=== PATIENT | male | born 1945 | race Caucasian/White ===

== ENCOUNTER → 2016-08-03 | Outpatient (CLI) | payer MEDICARE, BC ==
[2016-08-03 10:31] LABS: Prostate Specific Antigen 1.09 ng/mL (0.00-4.00)
== END | disposition home or self-care (01) ==
LOC: LABWHC1 08:27
PROVIDERS: ATTEND Internal Medicine Endocrinology, Diabetes & Metabolism
DX: E29.1 Testicular hypofunction (principal)
CPT/HCPCS: 36415; 84153; 84403

== ENCOUNTER 2020-08-02 07:48 | Day surgery (SDC) | payer MEDICARE, BC ==
[2020-07-21 14:38] VITALS: BMI 30.4
[~2020-08-02 07:48] MED LIST: ALPRAZolam 0.25 MG TAB PO PRN; ALPRAZolam 0.5 MG TAB PO PRN; ASPIRIN 325 MG TAB PO ONE; ATORVASTATIN 80 MG TAB PO ONE; NITROGLYCERIN SL TABS 0.4 MG TAB SUBLINGUAL PRN; SODIUM CHLORIDE 0.9% 1,000 ML in EMPTY BAG 1 BAG IV ONE
[2020-08-02 08:17] LABS: Glucose,Whole Blood 114 mg/dL (75-99)
[2020-08-02 08:20] VITALS: TEMP 97.9
[2020-08-02 08:25] LABS: Basophils % (A) 1 %; Eosinophils # (A) 0.1 k/uL (0-0.7); Eosinophils % (A) 2 %; HCT 44.3 % (39.0-53.0); HGB 14.6 gm/dL (13.0-17.5); Hypochromasia Slight; Lymphocytes # (A) 1.6 k/uL (1.0-4.8); Lymphocytes % (A) 27 %; MCH 33.3 pg (25.0-35.0); MCHC 32.9 g/dL (31.0-37.0); MCV 101.1 fL (80.0-100.0); Macrocytosis Slight; Monocytes # (A) 0.5 k/uL (0-1.0); Monocytes % (A) 8 %; Neutrophils # (A) 3.6 k/uL (1.3-7.7); Neutrophils % (A) 60 %; Platelet Count 132 k/uL (150-450); RBC 4.38 m/uL (4.30-5.90); RDW 14.6 % (11.5-15.5)
[2020-08-02] MEDS ORDERED: fentaNYL (PF) 50 MCG/ML 2 ML AMP ONE ×2 (08:38→11:28)
[2020-08-02] MEDS ORDERED: LIDOCAINE 1% INJ 10MG/ML (20 ML MDV) ONE ×2 (08:38→11:12)
[2020-08-02] MEDS ORDERED: fentaNYL (PF) 50 MCG/ML 2 ML AMP IV ONE ×2 (08:43→11:30)
[2020-08-02] MEDS ORDERED: MIDAZOLAM 2 MG/2 ML VIAL IV ONE (08:43)
[2020-08-02] MEDS ORDERED: LIDOCAINE 1% INJ 10MG/ML (20 ML MDV) SQ ONE (08:45)
[2020-08-02] MEDS ORDERED: IOPAMIDOL-370 125ML BTL INJ ONE (09:20)
[2020-08-02] MEDS ORDERED: IOPAMIDOL-370 50ML BTL INJ ONE ×2 (09:20→11:35)
[2020-08-02 11:09] VITALS: RESP 18
[2020-08-02] MEDS ORDERED: IV FLUID CONTINUATION 1,000 ML IV ONE (11:10)
--- NOTE | 2020-08-02 11:39 | CC ---
CARDIAC CATHETERIZATION REPORT INDICATION: Ischemic cardiomyopathy in a patient with known CAD, status post bypass surgery. Mr. Whelan is a 74-year-old gentleman with history of coronary artery disease status post CABG in 2002 with WALLACE to LAD, radial artery graft to PDA and venous graft to OM and ramus intermedius. The patient has been followed by me regularly and on the most recent stress test that was done nearly 4 years after his previous stress test, his LV systolic function has diminished and there is a new fixed perfusion defect involving the anterolateral wall. Due to the worsening LV function and new perfusion defects in a diabetic, I advised the patient to undergo cardiac catheterization. He had been explained of risks, benefits and alternatives, understood and accepted. PROCEDURE NOTE: After obtaining informed consent, left heart catheterization, coronary angiogram, selective injection of the bypass grafts, and aortogram was performed via the right femoral artery using standard Ricardo catheters. The patient tolerated the procedure well without any obvious immediate complications. Patient received moderate conscious sedation. Total sedation time was 40 minutes. FINDINGS: 1. HEMODYNAMICS: Left ventricular end-diastolic pressure is 20 to 24 mm. There is no significant gradient across the aortic valve. 2. LEFT VENTRICULOGRAM: Left ventriculogram is not performed. 3. AORTOGRAM: Aortogram was performed to locate the bypass grafts. There is no evidence of aortic aneurysm, dissection are significant aortic regurgitation. 4. ANGIOGRAPHIC DATA: SQUAXIN CORONARY ARTERIES: Left main coronary artery appears to be a normal-sized vessel. Divides into left anterior descending coronary artery and circumflex coronary artery. LAD appears totally occluded in its proximal portion. The circumflex coronary artery gives off a large caliber OM branch proximally. Circumflex coronary artery has a 90% stenosis in the ostial portion and there is also a 70% to 80% distal lesion. OM branch is a small caliber vessel, has multiple areas of stenotic lesions noted. Right coronary artery is totally occluded in the ostial portion. SELECTIVE INJECTION OF THE BYPASS GRAFTS: 1. WALLACE to LAD appears patent. Proximal and distal anastomotic sites are free of disease and the rampart LAD is free of significant disease. 2. Radial artery graft to the right coronary artery appears patent. The distal right coronary artery is free of disease and the anastomotic sites appear normal. 3. Venous graft to the circumflex coronary artery appears occluded. I could not document the second venous graft. CONCLUSION: 1. [place]da[place] 3-vessel coronary artery disease with patent WALLACE to LAD and patent radial artery graft to the right coronary artery. 2. Occluded venous graft to the OM branch and ramus intermedius. PLAN: I reviewed angiographic data with the welding machine setter. We will perform revascularization of the circumflex coronary artery. MELL / JESSICAN: [id number] /
[2020-08-02] MEDS ORDERED: RX INFO: IV CONTRAST WAS GIVEN 1 EACH MISC MISCELLANE PRN (11:46)
[2020-08-02] MEDS ORDERED: SODIUM CHLORIDE 0.9% 1,000 ML IV SCH (12:00)
--- NOTE | 2020-08-02 12:45 | PN ---
PROGRESS NOTE Mr. Whelan is a 74-year-old male with known history of coronary artery disease status post coronary artery bypass grafting, history of diabetes mellitus, who has been followed by Dr. Escudero and had a change in his stress test, underwent cardiac catheterization, was found to have patent WALLACE to LAD, patent saphenous vein graft to the right coronary artery with totally occluded graft to the left circumflex with critical stenosis involving the left circumflex in the first obtuse marginal branch. Recommendation was made regarding angioplasty and stenting. Because of the amount of dye that the patient received during the cardiac catheterization and the complexity of the procedure, the decision was made to postpone the procedure at this time and bring back the patient at a later time to undergo elective angioplasty and stenting of the left circumflex. His sheath was removed and hemostasis was obtained by placement of an Angio-Seal. I discussed those findings in detail with the patient as well as with Dr. Escudero. MMESTHELA / JESSICAN: [id number] /
[2020-08-02 15:44] VITALS: BP 147/81; PULSE 86
[2020-08-02] MEDS ORDERED: REG INSULIN SQ SCH (17:30)
[2020-08-02] MEDS ORDERED: INSULIN NPH SQ SCH (17:30)
[2020-08-02] MEDS ORDERED: ATORVASTATIN 10 MG TAB PO SCH (21:00)
[2020-08-02] MEDS ORDERED: IPRATROPIUM BROMIDE 0.06% NASAL SPRAY (15 ML) EA NOSTRIL SCH (21:00)
[2020-08-02] MEDS ORDERED: PIOGLITAZONE 30 MG TAB PO SCH (21:00)
[2020-08-02] MEDS ORDERED: POTASSIUM CHLORIDE ER 20 MEQ TAB.ER PO SCH (21:00)
[2020-08-02] MEDS ORDERED: FUROSEMIDE 40 MG TAB PO SCH (21:00)
[2020-08-02] MEDS ORDERED: METOPROLOL TARTRATE 50 MG TAB PO SCH (21:00)
[2020-08-03] MEDS ORDERED: INSULIN NPH SQ SCH (07:30)
[2020-08-03] MEDS ORDERED: REG INSULIN SQ SCH (07:30)
[2020-08-03] MEDS ORDERED: lisinopriL 20 MG TAB PO SCH (09:00)
[2020-08-03] MEDS ORDERED: ASPIRIN 81 MG PO SCH (09:00)
== END 2020-08-02 16:31 | disposition home or self-care (01) ==
LOC: CATHCVL 07:48
PROVIDERS: ATTEND Internal Medicine Cardiovascular Disease
DX: T82.898A Other specified complication of vascular prosthetic devices, implants and grafts, initial encounter (principal); I25.10 Atherosclerotic heart disease of native coronary artery without angina pectoris; R94.39 Abnormal result of other cardiovascular function study; I25.5 Ischemic cardiomyopathy; I10 Essential (primary) hypertension; E78.2 Mixed hyperlipidemia; E11.9 Type 2 diabetes mellitus without complications; R60.0 Localized edema; I25.2 Old myocardial infarction; Z95.1 Presence of aortocoronary bypass graft; Z79.82 Long term (current) use of aspirin; Z79.899 Other long term (current) drug therapy; Z79.84 Long term (current) use of oral hypoglycemic drugs; Z79.83 Long term (current) use of bisphosphonates
CPT/HCPCS: 93459; 93567; 85025; C1769 ×3; C1894; J2250; J2001; J3010; Q9967 ×2

== ENCOUNTER 2020-08-08 07:54 | Day surgery (SDC) | payer MEDICARE, BC ==
[2020-08-04 11:25] VITALS: BMI 28.4
[~2020-08-08 07:54] MED LIST changes: -ASPIRIN 325 MG TAB PO ONE; +ASPIRIN 325 MG TAB PO STA; -ATORVASTATIN 80 MG TAB PO ONE; +HEPARIN SODIUM,PORCINE 10,000 UNIT in SODIUM CHLORIDE 0.9% 1,000 ML IRRIGATION PRN; +HEPARIN SODIUM,PORCINE 2,500 UNIT in SODIUM CHLORIDE 0.9% 250 ML IRRIGATION PRN
[2020-08-08] MEDS ORDERED: METOPROLOL TARTRATE 50 MG TAB PO STA (08:26)
[2020-08-08] MEDS ORDERED: lisinopriL 20 MG TAB PO STA (08:26)
[2020-08-08 08:27] LABS: Glucose,Whole Blood 137 mg/dL (75-99)
[2020-08-08] MEDS ORDERED: LIDOCAINE 1% INJ 10MG/ML (20 ML MDV) ONE (09:55)
[2020-08-08] MEDS ORDERED: fentaNYL (PF) 50 MCG/ML 2 ML AMP ONE (10:21)
[2020-08-08] MEDS ORDERED: fentaNYL (PF) 50 MCG/ML 2 ML AMP IV ONE (10:36)
[2020-08-08] MEDS ORDERED: LIDOCAINE 1% INJ 10MG/ML (20 ML MDV) SQ ONE (10:40)
[2020-08-08] MEDS ORDERED: CLOPIDOGREL 75 MG TAB ONE (10:43)
[2020-08-08] MEDS ORDERED: HEPARIN SODIUM 1,000 UN/ML (10ML VL) ONE (10:43)
[2020-08-08] MEDS ORDERED: HEPARIN SODIUM 1,000 UN/ML (10ML VL) IV ONE (10:45)
[2020-08-08] MEDS ORDERED: CLOPIDOGREL 75 MG TAB PO ONE (10:47)
[2020-08-08] MEDS ORDERED: IOPAMIDOL-370 125ML BTL INJ ONE ×2 (11:03→11:26)
[2020-08-08 11:11] LABS: African American GFR (CKD) >90 (>60 ml/min/1.73 sqM); Anion Gap 9 mmol/L; Blood Urea Nitrogen 21 mg/dL (9-20); Calcium 9.6 mg/dL (8.4-10.2); Carbon Dioxide 28 mmol/L (22-30); Chloride 104 mmol/L (98-107); Glucose 149 mg/dL (74-99); Non-African American GFR(CKD) 87 (>60 ml/min/1.73 sqM); Sodium 141 mmol/L (137-145)
[2020-08-08 11:26] LABS: Potassium 4.8 mmol/L (3.5-5.1)
[2020-08-08 11:27] LABS: Basophils % (A) 1 %; Eosinophils # (A) 0.2 k/uL (0-0.7); Eosinophils % (A) 3 %; HCT 43.5 % (39.0-53.0); HGB 14.5 gm/dL (13.0-17.5); Lymphocytes # (A) 1.3 k/uL (1.0-4.8); Lymphocytes % (A) 25 %; MCH 33.3 pg (25.0-35.0); MCHC 33.2 g/dL (31.0-37.0); MCV 100.2 fL (80.0-100.0); Mean Platelet Volume 8.4; Monocytes # (A) 0.4 k/uL (0-1.0); Monocytes % (A) 8 %; Neutrophils # (A) 3.1 k/uL (1.3-7.7); Neutrophils % (A) 59 %; Platelet Count 138 k/uL (150-450); RBC 4.34 m/uL (4.30-5.90); RDW 13.4 % (11.5-15.5); WBC 5.2 k/uL (3.8-10.6)
[2020-08-08] MEDS ORDERED: RX INFO: IV CONTRAST WAS GIVEN 1 EACH MISC MISCELLANE PRN (11:37)
[2020-08-08] MEDS ORDERED: ATROPINE SULFATE 0.1 MG/ML 10ML SYRINGE IV PRN (11:37)
[2020-08-08] MEDS ORDERED: ZOLPIDEM 5 MG TAB PO PRN (11:37)
[2020-08-08] MEDS ORDERED: NITROGLYCERIN SL TABS 0.4 MG TAB SUBLINGUAL PRN (11:37)
[2020-08-08] MEDS ORDERED: MAG HYDROX/AL HYDROX/SIMETH 30 ML CUP PO PRN (11:37)
[2020-08-08] MEDS ORDERED: SODIUM CHLORIDE 0.9% 1,000 ML IV SCH (11:45)
--- NOTE | 2020-08-08 12:18 | PTCA ---
PERCUTANEOUSTRANS CORORONARY ANGIOGRAPHY Mr. Whelan is a 74-year-old male status post coronary artery bypass grafting 17 years ago, who recently had a drop in his ejection fraction. He was evaluated by Dr. Escudero and underwent cardiac catheterization and was found to have significant obstructive disease involving the left circumflex with occluded graft to the left circumflex. In view of that, recommendation was made regarding angioplasty and stenting. The procedure as well as the risks and the complications were discussed with the patient and he is in full understanding and agreement. PROCEDURE: Patient was brought to the blood bank laboratory technologist in a fasting semi-sedated state after receiving fentanyl and Benadryl and achieving moderate conscious sedated state. Using Xylocaine anesthesia and Seldinger technique, a 7-Lao sheath was introduced in the left femoral artery. A 7-Lao EBU 3.75 guiding catheter introduced in the system. After cannulating the left main, a 0.014 balanced medium weight J-wire was advanced across the lesion and positioned distally. Subsequently, a 0.014 Whisper J with a 45 angulated microcatheter was introduced and multiple attempts to cannulate the first obtuse marginal branch that was subtotally occluded were unsuccessful. At that point, the Whisper J and the microcatheter were removed and a 2.5 x 15 mm NC Trek balloon was advanced and 2 inflations, maximum of 14 atmospheres was done. Following that, the balloon was removed and a 2.75 x 23 mm Xience Miroslava stent was advanced, deployed and postdilated at 18 atmospheres. Following that, the balloon was removed and a 3.25 x 12 mm NC Emerge balloon was advanced and one inflation proximal was done at 14 atmospheres. After the last inflation, after appropriate wait, the balloon and the guidewire were withdrawn back in the guiding catheter. Images were obtained and repeated. Those images reveal stable successful stenting. At that point, the guiding catheter, the balloon and the guidewire were removed. The sheath was removed. Hemostasis was obtained with deployment of an 8-Lao Angio-Seal. There was no immediate complication. The patient was returned to his room in stable condition. Of note, the patient had no chest discomfort or significant EKG changes with the inflation. He received oral loading dose of clopidogrel in addition to 6000 units of intravenous heparin. His ACT was followed throughout the procedure. RESULTS: Successful stenting of the proximal long segment of calcified left circumflex with reduction of stenosis from 95% to 0%. RECOMMENDATION: Patient will be continued on aspirin, Plavix and statin. The importance of dual antiplatelet treatment were discussed with the patient and his family and they are in full understanding and agreement. Duration of sedation is 44 minutes. MELL / JAYLEN: [id number] /
[2020-08-08 12:21] LABS: Glucose,Whole Blood 150 mg/dL (75-99)
[2020-08-08] MEDS ORDERED: ACETAMINOPHEN TAB 325 MG TAB PO PRN (13:56)
[2020-08-08 16:51] LABS: Glucose,Whole Blood 263 mg/dL (75-99)
[2020-08-08] MEDS ORDERED: INSULN ASP PRT/INSULIN ASPART 100 UNIT/ML 10 ML VIAL SQ SCH (17:30)
[2020-08-08 20:47] LABS: Glucose,Whole Blood 294 mg/dL (75-99)
[2020-08-08] MEDS: METOPROLOL TARTRATE 50 MG TAB PO SCH (20:48)
[2020-08-08] MEDS ORDERED: PIOGLITAZONE 30 MG TAB PO SCH (21:00)
[2020-08-08] MEDS ORDERED: ATORVASTATIN 80 MG TAB PO SCH (21:00)
[2020-08-09 03:11] VITALS: RESP 18
[2020-08-09 06:48] LABS: Glucose,Whole Blood 173 mg/dL (75-99)
[2020-08-09] MEDS ORDERED: INSULN ASP PRT/INSULIN ASPART 100 UNIT/ML 10 ML VIAL SQ SCH (07:30)
[2020-08-09 07:41] VITALS: BP 157/89; PULSE 71; TEMP 97.4
[2020-08-09] MEDS: METOPROLOL TARTRATE 50 MG TAB PO SCH (07:58)
[2020-08-09] MEDS ORDERED: MULTIVITAMINS, THERA 1 EACH TAB PO SCH (09:00)
[2020-08-09] MEDS ORDERED: ASPIRIN 81 MG PO SCH (09:00)
[2020-08-09] MEDS ORDERED: CLOPIDOGREL 75 MG TAB PO SCH (09:00)
[2020-08-09] MEDS ORDERED: lisinopriL 20 MG TAB PO SCH (09:00)
--- NOTE | 2020-08-09 09:01 | PN ---
PROGRESS NOTE Mr. Whelan is a 74-year-old male with a history of coronary artery disease, status post coronary artery bypass grafting who had a drop in his ejection fraction, underwent cardiac catheterization by Dr. Escudero and was found to have significant obstructive disease in the left circumflex with occluded graft to the circumflex. He underwent stenting of the circumflex yesterday. He is doing well this morning. He denies any chest pain. He denies any dizziness or palpitation. He denies any nausea. He had nonsustained ventricular tachycardia yesterday, asymptomatic. He continues to be on aspirin once a day, Plavix 75 mg daily, insulin, lisinopril 20 mg daily, metoprolol tartrate 50 mg twice a day, Actos 30 mg daily. PHYSICAL EXAMINATION: Blood pressure running in the 150s with the heart rate in the 70s. LUNGS: Clear. HEART: Regular rate and rhythm. S1, S2. No S3 with systolic murmur. ABDOMEN: Soft, nontender. EXTREMITIES: No edema. Left groin no hematoma. EKG no acute changes. His magnesium is 1.8. IMPRESSION: 1. Status post stenting of left circumflex. 2. Cardiomyopathy. 3. Status post coronary artery bypass grafting. 4. Nonsustained ventricular tachycardia. 5. Diabetes. 6. Hypertension. 7. Hyperlipidemia. RECOMMENDATION: Patient should be able to be discharged home today. I will increase the dose of his beta blockers and he will follow up as an outpatient with Dr. Escudero. MMESTHELA / JAYLEN: [id number] /
[2020-08-09 09:20] LABS: African American GFR (CKD) 101.3 (60.0-200.0); Anion Gap 8.6 mmol/L (4.00-12.00); BUN/Creat Ratio 26.25 Ratio (12.00-20.00); Carbon Dioxide 28.4 mmol/L (21.6-31.8); Non-African American GFR(CKD) 87.4 (60.0-200.0); Potassium 4.1 mmol/L (3.5-5.5)
[2020-08-09 11:37] LABS: Glucose,Whole Blood 263 mg/dL (75-99)
== END 2020-08-09 15:02 | disposition home or self-care (01) ==
LOC: CATHCVL 07:54 → 6NMEDSUR 11:22 → CATHCVL 08-09 15:02
PROVIDERS: ATTEND Internal Medicine Interventional Cardiology
DX: I25.10 Atherosclerotic heart disease of native coronary artery without angina pectoris (principal); I25.810 Atherosclerosis of coronary artery bypass graft(s) without angina pectoris; I25.84 Coronary atherosclerosis due to calcified coronary lesion; I25.5 Ischemic cardiomyopathy; I10 Essential (primary) hypertension; E11.9 Type 2 diabetes mellitus without complications; E78.2 Mixed hyperlipidemia; R60.0 Localized edema; I25.2 Old myocardial infarction; I47.2 Ventricular tachycardia; Z79.84 Long term (current) use of oral hypoglycemic drugs; Z79.82 Long term (current) use of aspirin; Z79.899 Other long term (current) drug therapy; Z79.83 Long term (current) use of bisphosphonates
CPT/HCPCS: 85347; 80048 ×2; 83735; 85025; C9600; C1769 ×4; C1760; C1887 ×2; C1725 ×2; C1894; C1874; J2001; J3010; J1644; Q9967